=== PATIENT | male | born 1950 | race Caucasian/White ===

== ENCOUNTER 2021-02-06 07:48 | Outpatient (CLI) | payer OTHER, SELFPAY ==
--- NOTE | 2021-02-06 | EST_ITS ---
Patient Info Name: Mendez Watkins Age: 70 years : 1950 Gender: Male Ht: 73 in Wt: 185 lbs BSA: 2.08 m2 HR: 60 bpm BP: 155 / 93 mmHg Heart Rhythm: Sinus Rhythm Exam Date: 02/06/2021 9:04 AM Exam Location: [facility] Stress Patient Status: Outpatient Admit Date: 02/06/2021 Staff Ordering Physician: Charly, Jose WELDON Attending Provider: Charly, Jose WELDON Exercise Technologist: Kym Cain CT Exercise Physician: Jabari Bateman DO Exam Type: CA stress test treadmill w NM Study Info Indications R06.02 - Shortness of breath A nuclear stress test was performed. Summary 1. 1. Negative Ronen exercise stress test for ischemic ST changes by ECG criteria. 2. 2. Reduced functional capacity, achieving 7 METs of workload. 3. 3. Baseline hypertension with hypertensive response to exercise. 4. 4. Appropriate HR response to exercise. 5. 5. Appropriate HR recovery at 1 minute post exercise. 6. 6. Nuclear scan to follow and will be reported separately. Please correlate with it. 7. 7. Patient informed of the above results. Protocol: Ronen Stress ECG Details Stage: REST Duration (min): 2 min : 9 sec Speed (mph): 0.0 Grade (%): 0 HR (bpm): 68 SBP (mmHg): 155 DBP (mmHg): 93 METS: --- Stage: REST Duration (min): 5 min : 10 sec Speed (mph): 0.0 Grade (%): 0 HR (bpm): 68 SBP (mmHg): 155 DBP (mmHg): 93 METS: --- Stage: REST Duration (min): 25 min : 42 sec Speed (mph): 0.0 Grade (%): 0 HR (bpm): 76 SBP (mmHg): 164 DBP (mmHg): 99 METS: --- Stage: STAGE 1 Duration (min): 1 min : 0 sec Speed (mph): 1.7 Grade (%): 10 HR (bpm): 93 SBP (mmHg): 164 DBP (mmHg): 99 METS: --- Stage: STAGE 1 Duration (min): 2 min : 0 sec Speed (mph): 1.7 Grade (%): 10 HR (bpm): 99 SBP (mmHg): 164 DBP (mmHg): 99 METS: --- Stage: STAGE 1 Duration (min): 3 min : 0 sec Speed (mph): 1.7 Grade (%): 10 HR (bpm): 99 SBP (mmHg): 192 DBP (mmHg): 86 METS: --- Stage: STAGE 2 Duration (min): 1 min : 0 sec Speed (mph): 2.5 Grade (%): 12 HR (bpm): 116 SBP (mmHg): 192 DBP (mmHg): 86 METS: --- Stage: STAGE 2 Duration (min): 2 min : 0 sec Speed (mph): 2.5 Grade (%): 12 HR (bpm): 127 SBP (mmHg): 211 DBP (mmHg): 89 METS: --- Stage: STAGE 2 Duration (min): 3 min : 0 sec Speed (mph): 2.5 Grade (%): 12 HR (bpm): 131 SBP (mmHg): 211 DBP (mmHg): 89 METS: --- Stage: STAGE 3 Duration (min): 0 min : 15 sec Speed (mph): 3.4 Grade (%): 14 HR (bpm): 135 SBP (mmHg): 211 DBP (mmHg): 89 METS: --- Stage: RECOVERY Duration (min): 0 min : 44 sec Speed (mph): 0.0 Grade (%): 0 HR (bpm): 128 SBP (mmHg): 249 DBP (mmHg): 90 METS: --- Stage: RECOVERY Duration (min): 1 min : 44 sec Speed (mph): 0.0 Grade (%):
--- NOTE | ~2021-02-06 | NM_ITS ---
EXAMINATION: NM stress w perf spect multi DATE: 02/06/2021 10:42 INDICATION: Dyspnea on exertion. TECHNIQUE: Rest images were obtained following intravenous administration of 9.7 mCi Tc99m tetrofosmi n ([employer]). The patient performed an exercise activity. At peak exercise, 29.6 mCi Tc99m tetrofosmin ([employer]) was administered intravenously, and stress images were obtained. Data was reconstructed in to short axis and horizontal and vertical long axis SPECT images. Gated SPECT images were also obtain ed. COMPARISON: None. FINDINGS: There is a small, mild, fixed perfusion defect involving mid inferior segment of left ventr icle, consistent with infarct. No reversible component to suggest ischemia.. There is no segmental w all motion abnormality. Left ventricular ejection fraction measures 69%. IMPRESSION: 1. Small area of mild infarct involving mid inferior segment of left ventricle. 2. Normal left ventricular ejection fraction measuring 69%. Reviewed, dictated and finalized at location A. FIXER
== END 2021-02-06 07:49 | disposition home or self-care (01) ==
PROVIDERS: PCP Internal Medicine; Visit Provider Internal Medicine
DX: R06.02 Shortness of breath (principal)
CPT/HCPCS: 78452; 93017; A9502